=== PATIENT | female | born 1980 | race Caucasian/White ===

== ENCOUNTER 2021-03-29 20:16 | Emergency (ER) | payer OTHER, SELFPAY ==
[~2021-03-29] VITALS: Ht 157.5 cm; Wt 62.6 kg
[2021-03-29 20:35] VITALS: BP_SYST 120
--- NOTE | 2021-03-29 20:35 | NUR ---
PT TO BED 8 FOR EVALUATION.
--- NOTE | 2021-03-29 20:45 | NUR ---
CXR done. Pt appears ill, w/ intermittent cough
--- NOTE | 2021-03-29 21:15 | NUR ---
Placed in room 8. Placed on shelter monitor, blood pressure machine and pulse oximeter. Given a gown for exam. Side rails up. Received report from textile engineer.
[2021-03-29] MEDS ORDERED: IBUP-1969 PO (21:52)
[2021-03-29] MEDS ORDERED: AZIT-62 PO (21:52)
[2021-03-29] MEDS ORDERED: PRED20TA PO (21:52)
[2021-03-29] MEDS ORDERED: predniSONE 20 MG TABLET PO ONE (22:00)
--- NOTE | 2021-03-29 22:10 | NUR ---
Patient given written and verbal discharge instructions and verbalizes understanding. ER MD discussed with patient the results and treatment provided. Patient in stable condition. Rx of given for zythomax, ibuprofen, and prednisone PO. Patient educated on pain management, sleeping in prone position for better lung perfusion and to follow up with PMD. Pain Scale 0/10. Opportunity for questions provided and answered. Pt verbalized uderstanding, presently no s/s of SOB or Resp distress RR 19-22.
[2021-03-29 22:15] VITALS: BP_SYST 106
--- NOTE | 2021-03-29 22:25 | NUR ---
Regi delgadillo in ED - 03/29/21 at 2249 by [email or web address] CXR done. Pt appears ill, w/ intermittent cough
== END 2021-03-29 22:15 | disposition home or self-care (01) ==
LOC: SED 20:16
DX: U07.1 COVID-19 (principal); Z88.1 Allergy status to other antibiotic agents; Z79.899 Other long term (current) drug therapy
CPT/HCPCS: 71045; 99283